=== PATIENT | male | born 1965 | race Caucasian/White ===

== ENCOUNTER 2020-09-20 09:37 | Emergency (ER) | payer MEDICAID ==
[~2020-09-20] VITALS: Ht 182.9 cm; Wt 128.4 kg
[2020-09-20 10:10] LABS: CLARITY,URINE CLEAR (Clear); COLOR,URINE YELLOW (Yellow); GLUCOSE, URINE NEGATIVE (Neg); KETONES,URINE NEGATIVE (Neg); LEUKOCYTE ESTERASE ,URINE NEGATIVE (Neg); NITRITES, URINE NEGATIVE (Neg); OCCULT BLOOD,URINE TRACE-INTACT (Neg); PH,URINE 5.5 (4.8-8.0); PROTEIN,URINE NEGATIVE (Neg); UROBILINOGEN,URINE 0.2 E.U/dL (0.2-1.0)
[2020-09-20 10:13] LABS: UA COLLECTION TYPE CLN CATCH MIDSTREAM
[2020-09-20 10:19] LABS: BACTERIA,URINE NONE SEEN /HPF (Neg); MUCUS STRANDS NONE SEEN /LPF (Neg); RBC,URINE NONE SEEN /HPF (0-2); SQUAMOUS EPITHELIAL CELL,UR FEW /LPF (FEW); WBC,URINE 0-4 /HPF (0-4)
[2020-09-20] MEDS ORDERED: cyclobenzaprine 10mg tablet PO ONE (11:00)
[2020-09-20] MEDS ORDERED: ketorolac tromethamine 15mg/ml inj. IM ONE (11:00)
[2020-09-20] MEDS ORDERED: CYCL-1 PO (11:11)
[2020-09-20] MEDS ORDERED: IBUP-1984 PO (11:11)
--- NOTE | 2020-09-20 11:16 | NUR ---
Pt states that he is driving, and unable to find a ride. Pt decided not to take flexiril for these reasons.
[2020-09-20 11:35] VITALS: BP 126/96
== END 2020-09-20 11:36 | disposition home or self-care (01) ==
LOC: ER 09:38
DX: S29.012A Strain of muscle and tendon of back wall of thorax, initial encounter (principal); R10.84 Generalized abdominal pain; Z79.899 Other long term (current) drug therapy; X58.XXXA Exposure to other specified factors, initial encounter; Y93.89 Activity, other specified; Y92.89 Other specified places as the place of occurrence of the external cause; Y99.8 Other external cause status
CPT/HCPCS: 81001; 96372; 99283; J1885

== ENCOUNTER 2024-04-27 15:02 | Emergency (ER) | payer MEDICAID ==
[~2024-04-27] VITALS: Ht 182.9 cm; Wt 109.7 kg
[~2024-04-27 15:02] MED LIST: CYCL-1 PO
[2024-04-27 15:30] VITALS: BP 148/99; PULSE 98; RESP 18; TEMP 101.3; O2SAT 96
[2024-04-27] MEDS ORDERED: AMOX500C2 PO (16:05)
[2024-04-27] MEDS ORDERED: PRED20TA PO (16:05)
[2024-04-27] MEDS: CefTRIAXone 1000mg IM Kit (w/lidocaine diluent) IM ONE (16:11)
[2024-04-27] MEDS: dexamethasone sod phosphate 10mg/ml inj IM STA (16:11)
[2024-04-27] MEDS: acetaminophen 325mg tablet PO ONE (16:26)
== END 2024-04-27 16:36 | disposition home or self-care (01) ==
LOC: ER 15:02
DX: J02.9 Acute pharyngitis, unspecified (principal); Z79.899 Other long term (current) drug therapy
CPT/HCPCS: 96372; 99284; J0696; J1100